=== PATIENT | male | born 1955 | race Caucasian/White ===

== ENCOUNTER 2021-10-01 13:44 | Outpatient (CLI) | payer MEDICARE ==
[2021-10-01 14:30] LABS: Hemoglobin 13.5 g/dL (13.5-17.5); Mean Corpuscular HGB CONC 33.2 g/dL (32.0-36.0); Mean Corpuscular Hemoglobin 29.5 pg (27.0-33.0); Mean Corpuscular Volume 88.9 fl (81.2-95.1); Platelet Count 185 10x3/uL (150-450); RBC Distribution Width 13.1 % (11.5-14.5); Red Blood Cell (RBC) Count 4.58 10x6/uL (4.32-5.72); White Blood Cell (WBC) Count 7.5 10x3/uL (3.5-10.5)
[2021-10-01 14:39] LABS: PTT 27.7 sec (22.0-33.0); Prothrombin Time 10.9 sec (9.5-12.1)
[2021-10-01 14:47] LABS: Anion Gap 12 mmol/L (10-20); BUN (Urea Nitrogen) 20 mg/dL (8.4-25.7); Calc. Creatinine Clearance 0 mL/min (70-130); Calcium 9.1 mg/dL (7.8-10.44); Carbon Dioxide 28 mmol/L (23-31); Chloride 105 mmol/L (98-107); Glucose 152 mg/dL (80-115); Potassium 4.7 mmol/L (3.5-5.1); Sodium 140 mmol/L (136-145)
== END 2021-10-01 13:45 | disposition home or self-care (01) ==
LOC: LABBT 13:44
PROVIDERS: ATTEND Internal Medicine Cardiovascular Disease
DX: Z01.812 Encounter for preprocedural laboratory examination (principal); Z20.822 Contact with and (suspected) exposure to COVID-19
CPT/HCPCS: 80048; 85027; 85610; 85730; U0003; U0005

== ENCOUNTER 2021-10-06 06:02 | Day surgery (SDC) | payer MEDICARE ==
[2021-10-01 15:18] VITALS: BMI 34.7
[2021-10-06] MEDS ORDERED: Protamine Sulfate 50 MG/5 ML VIAL ONE ×2 (06:58→14:27)
[2021-10-06] MEDS ORDERED: Lidocaine 1% (PF) 30 ML VIAL ONE (06:58)
[2021-10-06] MEDS ORDERED: Isoproterenol 0.2 MG/1 ML AMP ONE ×2 (06:58→07:51)
[2021-10-06] MEDS ORDERED: Heparin 10,000 UNITS/ 10 ML VIAL ONE ×2 (06:58→09:23)
[2021-10-06] MEDS ORDERED: Heparin 25,000 units/D5W 500 ML ONE (06:58)
[2021-10-06] MEDS ORDERED: Fentanyl 100 MCG/2 ML VIAL ONE ×2 (06:59→10:04)
[2021-10-06] MEDS ORDERED: Midazolam HCl 2 mg/2 ml Vial ONE (07:44)
[2021-10-06] MEDS ORDERED: Ondansetron PF 4 MG/2 ML Vial ONE (07:45)
[2021-10-06] MEDS ORDERED: Rocuronium Bromide 10 MG/ML (10ML VIAL) ONE (07:45)
[2021-10-06] MEDS ORDERED: Lidocaine 1% PF 5 ML VIAL ONE (07:45)
[2021-10-06] MEDS ORDERED: Dexamethasone 20 MG/5 ML VIAL ONE (07:45)
[2021-10-06] MEDS ORDERED: ePHEDrine 50 MG/ML VIAL ONE (07:45)
[2021-10-06] MEDS ORDERED: PROPOFOL 200 MG/20 ML VIAL ONE (07:45)
[2021-10-06] MEDS ORDERED: SUGAMMADEX SODIUM 200 MG/2 ML VIAL ONE (10:03)
== END 2021-10-06 15:39 | disposition home or self-care (01) ==
LOC: SDC 06:02
PROVIDERS: ATTEND Internal Medicine Cardiovascular Disease
PROC: 02P Heart and Great Vessels, Removal (ICD-10-PCS; principal; 2021-10-06)
PROC: 02H Heart and Great Vessels, Insertion (ICD-10-PCS; 2021-10-06)
PROC: 02583ZZ Destruction of Conduction Mechanism, Percutaneous Approach (ICD-10-PCS; 2021-10-06)
PROC: 02K83ZZ Map Conduction Mechanism, Percutaneous Approach (ICD-10-PCS; 2021-10-06)
PROC: 4A023FZ Measurement of Cardiac Rhythm, Percutaneous Approach (ICD-10-PCS; 2021-10-06)
PROC: 4A0234Z Measurement of Cardiac Electrical Activity, Percutaneous Approach (ICD-10-PCS; 2021-10-06)
DX: I48.0 Paroxysmal atrial fibrillation (principal); I51.7 Cardiomegaly; I49.5 Sick sinus syndrome; G47.30 Sleep apnea, unspecified; Z79.01 Long term (current) use of anticoagulants; Z79.82 Long term (current) use of aspirin; Z79.899 Other long term (current) drug therapy; Z88.8 Allergy status to other drugs, medicaments and biological substances; Z91.041 Radiographic dye allergy status
CPT/HCPCS: 33285; 33286; 85347 ×2; 93005; 93613; 93623; 93656; 93657; 93662; C1730; C1732; C1759; C1760; C1764; J1100; J1644; J2001; J2250; J2405; J2704; J2720; J3010; J3490

== ENCOUNTER 2022-07-20 05:32 | Day surgery (SDC) | payer MEDICARE ==
[2022-07-17 09:32] VITALS: BMI 32.1
[2022-07-20] MEDS ORDERED: Heparin 10,000 UNITS/ 10 ML VIAL ONE ×3 (06:32→09:28)
[2022-07-20] MEDS ORDERED: Isoproterenol 0.2 MG/1 ML AMP ONE (06:44)
[2022-07-20] MEDS ORDERED: Heparin 25,000 units/D5W 500 ML ONE (06:44)
[2022-07-20] MEDS ORDERED: Midazolam HCl 2 mg/2 ml Vial ONE (07:26)
[2022-07-20] MEDS ORDERED: FENTANYL 50 MCG/ML 1 ML VIAL ONE (07:26)
[2022-07-20] MEDS ORDERED: Lidocaine 1% PF 5 ML VIAL ONE (07:42)
[2022-07-20] MEDS ORDERED: Esmolol 100 MG/10 ML VIAL ONE (07:42)
[2022-07-20] MEDS ORDERED: Ondansetron PF 4 MG/2 ML Vial ONE (07:42)
[2022-07-20] MEDS ORDERED: Phenylephrine 10 MG/ML VIAL ONE (07:42)
[2022-07-20] MEDS ORDERED: Rocuronium Bromide 10 MG/ML (10ML VIAL) ONE (07:42)
[2022-07-20] MEDS ORDERED: PROPOFOL 200 MG/20 ML VIAL ONE (07:42)
[2022-07-20] MEDS ORDERED: Dexamethasone 20 MG/5 ML VIAL ONE (07:42)
[2022-07-20] MEDS ORDERED: SUGAMMADEX SODIUM 200 MG/2 ML VIAL ONE (10:58)
[2022-07-20] MEDS ORDERED: Ondansetron ODT 4 MG TAB ONE (14:58)
== END 2022-07-20 17:09 | disposition home or self-care (01) ==
LOC: SDC 05:32
PROVIDERS: ATTEND Internal Medicine Cardiovascular Disease
PROC: 02583ZZ Destruction of Conduction Mechanism, Percutaneous Approach (ICD-10-PCS; principal; 2022-07-20)
PROC: 02K83ZZ Map Conduction Mechanism, Percutaneous Approach (ICD-10-PCS; 2022-07-20)
PROC: 4A023FZ Measurement of Cardiac Rhythm, Percutaneous Approach (ICD-10-PCS; 2022-07-20)
PROC: 4A0234Z Measurement of Cardiac Electrical Activity, Percutaneous Approach (ICD-10-PCS; 2022-07-20)
DX: I48.19 Other persistent atrial fibrillation (principal); I48.4 Atypical atrial flutter; I49.5 Sick sinus syndrome; Z86.16 Personal history of COVID-19; Z87.891 Personal history of nicotine dependence; Z79.01 Long term (current) use of anticoagulants; Z79.82 Long term (current) use of aspirin; Z79.899 Other long term (current) drug therapy; Z88.8 Allergy status to other drugs, medicaments and biological substances; Z91.041 Radiographic dye allergy status
CPT/HCPCS: 85347 ×2; 93306; 93623; 93655; 93656; 93657; J3010; 93005; C1732; C1760; C1884; C1894; J1100; J1644; J2250; J2370; J2405; J2704; Q0162

== ENCOUNTER 2024-01-19 06:32 | Day surgery (SDC) | payer MEDICARE ==
[2024-01-18 14:31] VITALS: BMI 33.6
[2024-01-19] MEDS ORDERED: Lidocaine 1% w/Epinephrine 1:100K 20 ML VIAL ONE (07:19)
[2024-01-19 07:24] LABS: #Basophils 0.05 10x3/uL (0.0-0.2); %Basophils 0.7 % (0.0-1.0); %Eosinophils 1.2 % (0.0-10.0); %Lymphocytes 15.5 % (21.0-51.0); %Monocytes 10.3 % (0.0-10.0); %Neutrophils 71.9 % (42.0-75.0); Hematocrit 43.4 % (42.0-52.0); Hemoglobin 14.5 g/dL (14.0-18.0); Mean Corpuscular HGB CONC 33.4 g/dL (32.0-36.0); Mean Corpuscular Hemoglobin 30.3 pg (27.0-31.0); Mean Corpuscular Volume 90.6 fL (78.0-98.0); Mean Platelet Volume 10.8 fL (7.4-10.4); Platelet Count 157 10x3/uL (130-400); RBC Distribution Width 12.7 % (11.5-14.5); Red Blood Cell (RBC) Count 4.79 mill/uL (4.70-6.10)
[2024-01-19 07:42] LABS: Prothrombin Time 12.7 sec (12.0-14.7)
[2024-01-19 07:43] LABS: PTT 27.6 sec (22.9-36.1)
[2024-01-19 08:08] LABS: Anion Gap 11 mmol/L (10-20); BUN (Urea Nitrogen) 16 mg/dL (8.4-25.7); Calc. Creatinine Clearance 113 mL/min (70-130); Calcium 8.9 mg/dL (7.8-10.44); Carbon Dioxide 22 mmol/L (23-31); Chloride 109 mmol/L (98-107); Estimated GFR 78; Glucose 114 mg/dL (80-115); Potassium 4.2 mmol/L (3.5-5.1); Sodium 138 mmol/L (136-145)
== END 2024-01-19 08:01 | disposition home or self-care (01) ==
LOC: SDC 06:32
PROVIDERS: ATTEND Internal Medicine Cardiovascular Disease
PROC: 0JPT32Z Removal of Monitoring Device from Trunk Subcutaneous Tissue and Fascia, Percutaneous Approach (ICD-10-PCS; principal; 2024-01-19)
DX: Z45.09 Encounter for adjustment and management of other cardiac device (principal); I48.19 Other persistent atrial fibrillation; Z91.041 Radiographic dye allergy status; Z88.8 Allergy status to other drugs, medicaments and biological substances
CPT/HCPCS: 33286; 80048; 85025; 85610; 85730